=== PATIENT | female | born 1985 | race Hispanic/Latino ===

== ENCOUNTER 2019-03-03 19:02 | Day surgery (SDC) | payer MEDICAID, OTHER ==
[2019-03-03 19:38] VITALS: BP 107/66; TEMP 98.1; BMI 29.0
[2019-03-03] MEDS ORDERED: diphenhydrAMINE 25 MG CAP PO PRN (19:56)
--- NOTE | 2019-03-03 19:58 | PDOC.LDHP ---
Labor and Delivery H&P Chief complaint: abdominal pain, other (cold symptoms) HPI: This is a 33 yo @ 34.4 wks by LMP/9.6wk US, presenting w/ CC of cold- like symptoms and cramping since yesterday. Patient reports feeling bad yesterday w/ symptoms including nasal congestion, subjective fever/chills. Denies any NVD, chest pain or SOB. Patient does endorse cramping in her lower abdomen and back pain since yesterday. She feels she has been having about 5 CTX per hr. She endorses + FM. Patient endorses decreased PO intake due to not feeling well. Patient denies sick contacts. Denies muscle aches. Denies headache , vision changes, LE swelling. Current gestational age (weeks): 34 (34.4) Due date: 04/10/19 Dating criteria: last menstrual period, first trimester ultrasound Grav: 5 Para: 4 OB History Details: 03/25/16: 39wks, 8lb 0 oz, viable F, @ [facility] 02/09/12: 37 wks, 6lb 11 oz viable M, @ [facility] 06/06/09: 40wks, 8lb 9oz vialbe F, @ [facility] 06/15/01: 40 wks, 6lb 10 oz viable F, - [place] in [place] Current complications: none, other (hx of chlamydia treated this ) Abnormal US findings: Yes (unable to visualize outflow tracts, referred to MFM) Current medications: pre- vitamins, iron Previous surgical history: none Allergies/Adverse Reactions: Allergies Allergy/AdvReac Type Severity Reaction Status Date / Time No Known Allergies Allergy Verified 03/03/19 19:32 Social history: none - Physical Exam Vital signs reviewed and normal: yes General: NAD, resting, breathing through contractions Heart: RRR Lungs: nonlabored breathing Abdomen: other (mild TTP in lower abdomen b/l) Extremeties: trace edema FHT: category 1 (FHR 156, accelerations, no decels), variability present [place] contractions every: irregular, spaced out - OB Labs Blood type: A RH: positive Antibody Screen: negative HIV: negative RPR: negative HEPSAg: negative 1 hour GCT: negative (121) GBS: unknown Urine drug screen: not done Rubella: immune - Plan Plan: other (observation status) -: Viral URI - Patient presenting w/ symptoms c/w Viral URI - Patient has decreased PO intake - Will give 1L LR bolus; bolus given, encourage PO hydration - Will give benadryl, advised to take flonase at home for nasal congestion, honey w/ tea for sore throat/cough, humidifier for supportive therapy as well - Will also get a UA to r/o as cause of cramping - UA neg - FHT cat 1 and no concerns, mother feeling baby move today Mild Dehydration - see above; giving fluid bolus, encourage PO hydration - UA neg for infection Patient will be discharged. Encourage PO hydration. Supportive care including tylenol PRN for fever. Flonase and benadryl for cold-like symptoms. ER precautions given including persistant CTX, NVD, decreased movement. All questions asked/answered. DISPO: discharged and given ER precautions Case discussed with Dr. Haq Addendum - Attending - Attending Attestation Date/Time: 03/04/19 0000 I personally evaluated the patient and discussed the management with Dr. Stein and Jose. I agree with and repeated the History, Examination, Assessment and Plan documented above with any addition or exceptions noted below. History and exam c/w viral URI. Check UA. No ctx on monitor. FHT's reassuring. Hydrate and PO challenge with dispo pending.
[2019-03-03] MEDS ORDERED: Lactated Ringer's 1,000 ML IV SCH (20:00)
[2019-03-03] MEDS ORDERED: Acetaminophen 500 MG TAB PO PRN (20:03)
[2019-03-03 21:47] LABS: Bilirubin Negative (Negative); Blood, Urine Negative (Negative); Clarity CLEAR (Clear); Glucose, Urine (Dipstick) Negative (Negative); Leukocyte Negative (Negative); Nitrite Negative (Negative); Protein, Urine (Dipstick) Negative (Neg-Trace); Specific Gravity, Urine 1.006 (1.002-1.036); Urobilinogen 0.2 mg/dL (0.2-1.0); pH, Urine 6.5 (5.0-9.0)
[2019-03-03 21:50] LABS: Bacteria/HPF None Seen HPF (None Seen); Hyaline Casts/LPF 0-3 HYALINE CAST LPF (0-3 Hyaline); RBC/HPF 0-3 HPF (0-3); Squamous Epithelial 0-3 HPF (0-3); WBC/HPF None Seen HPF (0-3)
== END 2019-03-03 22:00 | disposition home or self-care (01) ==
LOC: L&D/OP 19:02
PROVIDERS: ATTEND Emergency Medicine
DX: O99.89 Other specified diseases and conditions complicating pregnancy, childbirth and the puerperium (principal); R10.9 Unspecified abdominal pain; M54.9 Dorsalgia, unspecified; O99.283 Endocrine, nutritional and metabolic diseases complicating pregnancy, third trimester; E86.0 Dehydration; Z3A.34 34 weeks gestation of pregnancy; Z79.899 Other long term (current) drug therapy
CPT/HCPCS: 81001; 96360; 99284; Q0163

== ENCOUNTER 2019-03-30 13:18 | Inpatient (IN) | payer SELFPAY ==
[2019-03-30 14:10] VITALS: BMI 28.0
[2019-03-30] MEDS ORDERED: NS / Oxytocin 40 units/1000ml 1,000 ML IV PRN (14:25)
[2019-03-30] MEDS ORDERED: Lidocaine 1% (PF) 30 ML VIAL SC PRN (14:25)
[2019-03-30] MEDS ORDERED: Ondansetron PF 4 MG/2 ML Vial IVP PRN ×2 (14:25→16:56)
[2019-03-30] MEDS ORDERED: Promethazine HCl 25 MG/ML VIAL IM PRN ×2 (14:25→17:00)
--- NOTE | 2019-03-30 14:27 | PDOC.FPROB ---
FMR OB H&P: HPI - History of Present Illness Chief Complaint: Contractions History of Present Illness: This is a 33 yo at 38.3 wk by LMP c/w 9.6wk US, JV 04/10/19, who presents to L&D with a cc of contractions. She states the contractions started at ~0500 this morning and have grown in intensity. She reports the contractions to be every 3 minutes. She reports some vaginal bleeding but no LOF, SOB, chest pain, or changes in her vision. Her previous delivers have been via [facility] Primary Care Physician: Amalia Lazaro MD FMR OB H&P: Current - Care : 5 Para: [id number] Gestational age: 38.3 Due date: 04/10/19 Dating Criteria: 9.6wk us c/w LMP - OB Labs Blood type: A RH: positive Antibody Screen: negative HIV: negative RPR: negative HepBsAg: negative Rubella: immune Gonorrhea: negative Chlamydia: negative 1 hour gtt: 121 GBS: negative (03/16/19) H&H: 10.4/32.2 02/05/19 Platelets: 267 FMR OB H&P: History - Past Medical History PMH: Depression, iron deficiency anemia - OB History OB History: 4 previous deliveries at term via - [employer] History [employer] History: None - Surgical History Sx History: none - Social History Social History: Hx of tobacco abuse, none during current - Family History Family History: noncontributory FMR OB H&P: Medications - Current Home Medications: Medication Instructions Recorded Confirmed Type 21/Iron Fu/Folic Acid 1 tablet PO DAILY 03/25/16 03/30/19 History [ Complete Caplet] Allergies/Adverse Reactions: Allergies Allergy/AdvReac Type Severity Reaction Status Date / Time No Known Allergies Allergy Verified 03/03/19 19:32 FMR OB H&P: ROS - Review of Systems General: denies: fever/chills, weight/appetite/sleep changes Eyes: denies: eye pain, vision changes ENT: denies: nasal congestion, rhinorrhea Cardiovascular: denies: chest pain, palpitation, edema Respiratory: denies: cough, shortness of breath Gastrointestinal: denies: abdominal pain, indigestion, nausea, vomiting, diarrhea, constipation Genitourinary (Female): reports: vaginal pain, vaginal bleeding (minimal, started with contractions), contractions, vaginal pressure. denies: incontinence, dysuria Musculoskeletal: denies: pain, stiffness Neurologic: denies: numbness, syncope, loss of counsciousness Integumentary: denies: itching, rash Psychological: reports: depression. denies: anxiety FMR OB H&P: Vital Signs - Maternal Vital signs: BP 127/72, HR 83, RR 20, SPo2 100% ra - Heart Tones Baseline: 140 Variability: moderate Acceleration: present Deceleration: absent Category: category 1 [place] contractions every: 3 FMR OB H&P: Physical Exam - Physical Exam General: NAD, awake, alert and oriented HEENT: normocephalic and atraumatic, EOMI, MMM, grossly normal vision, grossly normal hearing, oropharynx clear Neck: FROM, trachea midline Chest: non-tender to palpation, no lesions Heart: RRR, normal S1/S2, no murmurs/rubs/gallops General: CTAB, no respiratory distress, good air movement Abdomen: soft, gravid, non-tender, bowel sound present Musculoskeletal: normal gait and station, pulses present, FROM in all four extremities Neurological: cranial nerves II through XII intact Skin: good tugor, capillary refill <2 seconds Lymphatic: no unusual bruising or bleeding Psychiatric: intact recent and remote memory, normal mood and affect - Pelvic Exam SVE: 6/100/-1 with bulging bag FMR OB H&P: A/P - Problem List (1) Active labor at term Current Visit: No Status: Acute Code(s): [id number] - Disposition: This is a 33 yo at 38.3 by LMP c/w 9.6 wk US Term sIUP in labor -Admit to L&D -LR 125ml/hr -GBS negative -Plan to rupture amniotic sac for labor augmentation -Expectant management Iron deficiency anemia effecting -H/H 10.4/32.2 Depression Discussion: Date/Time: 03/30/19 4052 This H&P was discussed with Dr. Jones and Dr. Lazaro who agree with the above documentation and plan. Signature: Ritesh Parsons DO
[2019-03-30] MEDS ORDERED: Lactated Ringer's 1,000 ML IV SCH (14:30)
[2019-03-30] MEDS ORDERED: Ibuprofen 800 MG TAB PO PRN (14:30)
[2019-03-30 14:41] LABS: Hemoglobin 12.7 g/dL (12.0-16.0); Mean Corpuscular HGB CONC 33.5 g/dL (32.0-36.0); Mean Corpuscular Hemoglobin 28.5 pg (27.0-31.0); Mean Corpuscular Volume 85.1 fL (78.0-98.0); Mean Platelet Volume 8.9 fL (7.4-10.4); Platelet Count 236 thou/uL (130-400); RBC Distribution Width 18.4 % (11.5-14.5); Red Blood Cell (RBC) Count 4.47 mill/uL (4.20-5.40)
[2019-03-30] MEDS ORDERED: Ibuprofen 800 MG TAB PO SCH (14:45)
[2019-03-30] MEDS ORDERED: Misoprostol 200 MCG TAB ONE (14:56)
[2019-03-30] MEDS ORDERED: Methylergonovine 0.2 MG/ML VIAL ONE (14:56)
--- NOTE | 2019-03-30 15:15 | PDOC.LDPN ---
Labor & Delivery Progress Note - Subjective Subjective: painful contractions - Objective Vital signs reviewed and normal: yes General: breathing through contractions Uterine fundus: non tender SVE: @ [address] Lazaro Dilation: 7 Effacement: 90% Station: -1 FHT: category 1 (+accels, moderate variability), variability present [place] contractions every: 2-3 minutes AROM: clear fluid (at 1505) - Assessment (1) Active labor at term Code(s): [id number] - Current Visit: No Status: Acute Comment: Continue expectant management Patient does not desire epidural Plan: continue plan of care
[2019-03-30 15:21] LABS: HBSAg Index 0.36 S/CO (0-0.99); Hep B Surf Ag Non-Reactive S/CO (NonReactive)
[2019-03-30 15:22] LABS: Syphilis Antibody Nonreactive (Nonreactive); Syphilis Antibody Index 0.04 S/CO (<1.00 Non-Reactive)
--- NOTE | 2019-03-30 16:45 | PDOC.OPDEL ---
OB Operative/Delivery Note - Additional Findings/Plan Compilations/Other Findings: Delivering Physician: Ritesh Parsons DO Security Sales Consultant: Amalia Lazaro MD Attending: Carlos Manuel Jones MD Procedure: Spontaneous Vaginal Delivery Anesthesia: none QBL: 426ml Pre-op Diagnosis: 1. Term intrauterine in labor 2.Iron deficiency anemia 3. Depression Post-op Diagnosis: 1. Term intrauterine , delivered 2. same as above Indications: A 33 y/o female presents in active labor Delivery Note: This is 33 yo F G [id number] @ 38.3wks by LMP c/w 9.6wk US who delivered a viable F infant at 1628. Following an uneventful antepartum course , a vigorous female was delivered over an intact perineum in the occipitoanterior position. Anterior Shoulder and then remainder of the body delivered. No nuchal cord, body cord x1. The head was held down and mouth and nares were bulb suctioned. Cord clamped after delayed cord clamping and cut and cord blood collected. Placenta delivered intact in the [place] with a 3 vessel cord noted. Fundal massage was performed and the fundus was firm. The cervix and vagina were inspected and found to be free of lacerations. went to nursery in good condition for routine care. Apgars were 8/9 at 1 & 5 minutes, respectively. Patient tolerated delivery well and went to after routine recovery/care.
[2019-03-30] MEDS ORDERED: Bisacodyl 10 MG SUPP PR PRN (16:56)
[2019-03-30] MEDS: Ferrous Sulfate 325 MG TAB PO SCH (18:20)
[2019-03-30] MEDS: Ibuprofen 800 MG TAB PO SCH (18:38)
[2019-03-30] MEDS ORDERED: Docusate Calcium (SURFAK) 240 MG CAP PO SCH (21:00)
--- NOTE | 2019-03-31 06:45 | PDOC.EVN ---
Event Note - Event Note Event Note: PPD 1 S/P at 1620 S. Doing well O. VSSAFEB Baby well No VB A/P: PPD1..multip, desires home today. We will await the 24 hour prasad for OBS and see if baby can be released, if not...DC tomorrow.
--- NOTE | 2019-03-31 06:47 | PDOC.OBPPN ---
FMR OB PN: Subj - Interval History Hospital Day: 2 Day: 1 33 y/o ->5 delivered at 38.3 WGA via on 03/30/19 at 1628. Patient reports pain is well controlled with ibuprofen. She has had minimal lochia. Endorses flatus, tolerating po, ambulating. She is breast feeding, thinks her milk hasn't come in yet. She denies any headache, vision changes, LE swelling. FMR OB PN: Obj - Maternal Vital signs: BP: 98/52 HR: 71 RR: 17 Tmax: 98.0 Pox: 100% on RA Wt: 69 kg. - Lochia Lochia: minimal FMR OB PN: Exam - Physical Exam General: NAD, awake, alert and oriented HEENT: normocephalic and atraumatic, MMM, conjunctiva clear, grossly normal vision, grossly normal hearing Neck: supple, no LAD Heart: RRR, normal S1/S2, no murmurs/rubs/gallops, pulses present, no edema General: CTAB, no respiratory distress, good air movement, no rales/rhonchi Abdomen: soft, fundus(cm) (firm 2cm below umbilicus), bowel sound present Musculoskeletal: normal gait and station, pulses present, FROM in all four extremities Neurological: cranial nerves II through XII intact, no clonus, no focal deficit Skin: good tugor, capillary refill <2 seconds Lymphatic: no unusual bruising or bleeding, no purpura, no petechia Psychiatric: intact recent and remote memory, good judgement and insight FMR OB PN: Data - Labs Lab results: Laboratory Results - last 24 hr 03/30/19 03/30/19 03/30/19 14:27 14:27 14:27 WBC RBC Hgb Hct MCV MCH MCHC RDW Plt Count MPV Syphilis IgG/IgM Ab Nonreactive Hep Bs Antigen Non-Reactive Blood Type A POSITIVE Antibody Screen NEGATIVE 03/30/19 14:27 WBC 12.0 H RBC 4.47 Hgb 12.7 Hct 38.0 MCV 85.1 MCH 28.5 MCHC 33.5 RDW 18.4 H Plt Count 236 MPV 8.9 Syphilis IgG/IgM Ab Hep Bs Antigen Blood Type Antibody Screen FMR OB PN: A/P - Problem List (1) Spontaneous vaginal delivery Current Visit: No Status: Acute Code(s): O80 - ENCOUNTER FOR FULL-TERM UNCOMPLICATED DELIVERY Assessment and Plan: Routine post- care -Pain control with ibuprofen -Encouraged breast feeding -Encouraged ambulation -Continue PNV (2) Anemia affecting Current Visit: Yes Status: Acute Code(s): O99.019 - ANEMIA COMPLICATING , UNSPECIFIED TRIMESTER Assessment and Plan: Hb at normal level on admission. Patient has been on iron. -continue iron (3) Depression Current Visit: Yes Status: Acute Code(s): F32.9 - MAJOR DEPRESSIVE DISORDER , SINGLE EPISODE, UNSPECIFIED Assessment and Plan: Patient has been stable after therapy -Continue to monitor for signs of depression as patient at high risk Disposition: Anticipate d/c around 1700 pending bilirubin level Discussion: Date/Time: 03/31/19 0645 This H&P was discussed with Dr. Yang who agrees with the above documentation and plan. Signature: Amalia Lazaro MD, PGY-2
[2019-03-31 08:32] VITALS: BP 104/56; TEMP 97.8
[2019-03-31] MEDS: Ibuprofen 800 MG TAB PO SCH ×2 (08:48→17:10)
[2019-03-31] MEDS ORDERED: Milk Of Magnesia 30 ML UDCUP PO PRN (09:00)
[2019-03-31] MEDS: Ferrous Sulfate 325 MG TAB PO SCH (14:27)
== END 2019-03-31 19:05 | disposition home or self-care (01) | DRG 807 ==
LOC: L&D/OP 13:18 → L&D 16:23 → 3SW 18:14
PROVIDERS: ADMIT Obstetrics & Gynecology; ATTEND Obstetrics & Gynecology
PROC: 10E0XZZ Delivery of Products of Conception, External Approach (ICD-10-PCS; principal; 2019-03-30)
DX: O99.344 Other mental disorders complicating childbirth (principal); Z37.0 Single live birth; F32.9 Major depressive disorder, single episode, unspecified; O99.02 Anemia complicating childbirth; D50.9 Iron deficiency anemia, unspecified; Z3A.38 38 weeks gestation of pregnancy
CPT/HCPCS: 85027; 86780; 86850; 86900; 86901; 87340; J2210